=== PATIENT | male | born 1985 | race American Indian/Alaskan Native ===

== ENCOUNTER 2018-11-30 09:48 | Emergency (ER) | payer MEDICAID ==
[2018-11-30] MEDS ORDERED: IBUPROFEN 800 MG TAB PO ONE (10:28)
--- NOTE | 2018-11-30 10:28 | Emergency Department Report ---
ED Back Pain/Injury HPI - General Chief Complaint: Extremity Problem,Nontraumatic Stated Complaint: LEG/KNEE INJURY Time Seen by Provider: 11/30/18 10:27 Source: patient Limitations: Physical Limitation - History of Present Illness Initial Comments: 33 YO MALE COMES TO ER SP BRII YESTERDAY. MECHANICAL FALL. CO KNEE PAIN. NO OTHER INJURY. AMBULATORY BUT WITH LIMP. -: days(s) Similar Symptoms Previously: No Place: home Radiation: none Severity: moderate Consistency: intermittent Improves With: immobilization Worsens With: movement Associated Symptoms: denies other symptoms - Related Data Previous Rx's Medication Instructions Recorded Last Taken Type Ibuprofen [Motrin] 800 mg PO Q8HR PRN #30 tablet 11/30/18 Unknown Rx Allergies Allergy/AdvReac Type Severity Reaction Status Date / Time No Known Allergies Allergy Unverified 01/26/16 19:51 ED Review of Systems ROS: Stated complaint: LEG/KNEE INJURY Other details as noted in HPI Comment: All other systems reviewed and negative ED Past Medical Hx - Past Medical History Medical history: no medical history Surgical history: no surgical history Family history: no significant family history - Social History Alcohol use: rarely ED Back Pain Physical Exam - Exam General: Vital signs noted. No distress. Alert and acting appropriately. LARGE SUPRA/MED EFFUSION OF R KNEE ON EXAM DP PLUS 2 NO DISTAL EDEMA SCRATCHES TO KNEE NOTED Back/Abdomen: No Abdominal Tenderness, No Perithoracic Tenderness, No Perilumbar Tenderness, No Sacroiliac Tenderness, No Flank Tenderness, No Straight Leg Raise Pain Neuro: Yes Normal Sensation, Yes Normal DTR's, Yes Normal Gait, No Motor Weakness ED Course Vital Signs 11/30/18 09:59 Temperature 98.8 F Pulse Rate 76 Respiratory 17 Rate Blood Pressure 164/93 [Right] O2 Sat by Pulse 96 Oximetry Ed Back Pain Tests - Tests Tests: Abnormal X Rays ED Medical Decision Making - Radiology Data Radiology results: report reviewed, image reviewed - Medical Decision Making XRAY NOTED POS EFFUSION KNEE IMMOB/CRUTCHES DC HOME WITH ORTHO FOLLOW UP. PT VERBALIZES UNDERSTANDING OF PLAN OF CARE. Vital Signs 11/30/18 11/30/18 09:59 10:42 Temperature 98.8 F Pulse Rate 76 Respiratory 17 16 Rate Blood Pressure 164/93 [Right] O2 Sat by Pulse 96 Oximetry - Differential Diagnosis RO FX PATELLA/CONTUSION Critical care attestation.: If time is entered above; I have spent that time in minutes in the direct care of this critically ill patient, excluding procedure time. ED Disposition Clinical Impression: Knee pain, Knee effusion, Abrasion, knee, Contusion, knee, Fall Disposition: TO HOME OR SELFCARE Is pt being admited?: No Does the pt Need Aspirin: No Condition: Stable Instructions: Knee Effusion (ED) Additional Instructions: ICE REST ELEVATE MED ORDERED TODAY FOR PAIN MAY USE OVER THE COUNTER TYLENOL WELL FOR PAIN DIET TOLERATED FOLLOW UP WITH ORTHO MD NEXT WEEK CRUTCHES - NON WEIGHT BEARING IMMOBILIZER MAY BE TAKEN OFF AT NIGHT Prescriptions: Ibuprofen [Motrin] 800 mg PO Q8HR PRN #30 tablet PRN Reason: Pain, Moderate (4-6) Referrals: JUSTINE CANCINO MD [Staff Physician] - 3-5 Days AGUSTO JORDAN MD [Staff Physician] - 3-5 Days Time of Disposition: 10:41
--- NOTE | 2018-11-30 10:40 | XRay Report ---
RIGHT KNEE HISTORY: Right knee pain. COMPARISON: None. TECHNIQUE: 3 views of the right knee obtained. FINDINGS: Bones: No fracture or dislocation. Mild diffuse osteopenia. Joint spaces: Maintained. Soft tissues: Suprapatellar soft tissue swelling and distention of the suprapatellar bursa consistent with a joint effusion. Additional findings: None. IMPRESSION: Soft tissue swelling with a moderate size knee joint effusion. No significant bony abnormality. Signer Name: Saeid Levy MD Signed: 11/30/2018 10:36 AM Workstation Name: [id number]
[2018-11-30 11:01] VITALS: BP 154/90
== END 2018-11-30 11:00 | disposition home or self-care (01) ==
LOC: ED 09:48
DX: S80.01XA Contusion of right knee, initial encounter (principal); W19.XXXA Unspecified fall, initial encounter; Y93.89 Activity, other specified; Y92.89 Other specified places as the place of occurrence of the external cause; Y99.8 Other external cause status